=== PATIENT | male | born 2005 | race African-American/Black ===

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

== ENCOUNTER 2025-04-10 21:31 | Emergency (ER) | payer MEDICAID ==
[~2025-04-10] VITALS: Ht 182.9 cm; Wt 85.0 kg
[~2025-04-10 21:31] MED LIST: CEPH250C2 MT
[2025-04-10 21:42] VITALS: O2SAT 100
[2025-04-10] MEDS ORDERED: ONDANSETRON HCL 4MG/2ML INJ IV ONE (22:15)
[2025-04-10] MEDS ORDERED: FAMOTIDINE 20MG/2ML VIAL IV ONE (22:15)
[2025-04-11] MEDS: FAMOTIDINE 20MG/2ML VIAL IV NR (01:35)
[2025-04-11] MEDS: ONDANSETRON HCL 4MG/2ML INJ IV NR (01:35)
[2025-04-11] MEDS: SODIUM CHLORIDE 0.9% 1,000 ML IV ONE (01:36)
[2025-04-11 02:57] LABS: BASOPHILS % 0.3 % (0.0-2.0); EOSINOPHILS % 0.1 % (0.0-5.0); HEMATOCRIT. 39.8 % (42.0-52.0); HEMOGLOBIN. 13.5 g/dL (14.0-18.0); LYMPHOCYTES % 13.5 % (20.0-50.0); MEAN PLATELET VOLUME 6.7 fl (7.4-10.4); MONOCYTES % 4.9 % (2.0-8.0); NEUTROPHILS % 81.2 % (40.0-76.0); PLATELET 282 x1000/uL (130-400); RED BLOOD CELL COUNT 4.10 mill/uL (4.7-6.1); RED CELL DISTRIBUTION WIDTH 13.6 % (11.6-14.6)
[2025-04-11 03:04] LABS: CREATININE 0.9 mg/dL (0.6-1.3)
[2025-04-11 03:05] LABS: ETHANOL BLOOD 143 mg/dL (<10); UREA NITROGEN BLOOD 7 mg/dL (9-23)
[2025-04-11 03:06] LABS: ASPARTATE AMINOTRANSFERASE 34 IU/L (<34)
[2025-04-11 03:07] LABS: BILIRUBIN DIRECT 0.2 mg/dL (<=3.0); BILIRUBIN TOTAL 0.6 mg/dL (0.1-1.0); PROTEIN TOTAL 6.7 g/dL (6.0-8.3)
[2025-04-11 04:04] VITALS: BP 106/56; PULSE 63; RESP 16; TEMP 36.6; O2SAT 100
== END 2025-04-11 04:06 | disposition home or self-care (01) ==
LOC: ER 21:31
DX: F10.90 Alcohol use, unspecified, uncomplicated (principal); R11.2 Nausea with vomiting, unspecified; Z79.899 Other long term (current) drug therapy; Y90.6 Blood alcohol level of 120-199 mg/100 ml
CPT/HCPCS: 36415; 99284; 80076; 80048; 80320; 83690; 85025; 96361; 96374; 96375; J7030; J1308; J2405; Z7610; G0480

== ENCOUNTER 2025-04-15 08:38 | Emergency (ER) | payer MEDICAID ==
[~2025-04-15] VITALS: Ht 182.9 cm; Wt 82.0 kg
[2025-04-15 08:41] VITALS: O2SAT 100
[2025-04-15 08:43] VITALS: BP 134/59; PULSE 67; RESP 14; TEMP 36.8; O2SAT 100
== END 2025-04-15 09:14 | disposition home or self-care (01) ==
LOC: ER 08:38
DX: S01.01XD Laceration without foreign body of scalp, subsequent encounter (principal); W01.0XXA Fall on same level from slipping, tripping and stumbling without subsequent striking against object, initial encounter
CPT/HCPCS: 99282